=== PATIENT | male | born 1975 | race Caucasian/White ===

== ENCOUNTER 2016-04-26 19:51 | Emergency (ER) | payer BC ==
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
== END 2016-04-26 20:18 | disposition home or self-care (01) ==
LOC: ER 19:51
DX: H60.502 Unspecified acute noninfective otitis externa, left ear (principal); H66.92 Otitis media, unspecified, left ear
CPT/HCPCS: 99282